=== PATIENT | female | born 1955 | race Caucasian/White ===

== ENCOUNTER 2019-03-06 19:58 | Inpatient (IN) | payer MEDICAID, OTHER ==
[2019-03-06] MEDS: SOD CHLORIDE 0.9% 500 ML IV (22:37)
[2019-03-06] MEDS: ONDANSETRON 4 MG INJ IV (22:37)
[2019-03-06 22:49] LABS: ADD MAN DIFF? NO
[2019-03-06 22:53] LABS: BASOPHILS % 0.3 % (0.0-2.0); EOSINOPHILS % 0.2 % (0.0-7.0); HEMATOCRIT 44.4 % (37.0-47.0); HEMOGLOBIN 14.7 g/dl (12.0-16.0); LYMPHOCYTES # 1.3 10^3/ul (0.8-2.9); MEAN CORPUSCULAR HEMOGLOBIN 28.6 pg (29.0-33.0); MEAN CORPUSCULAR HGB CONC 33.1 g/dl (32.0-37.0); MEAN CORPUSCULAR VOLUME 86.4 fl (82.0-101.0); MEAN PLATELET VOLUME 10.2 fl (7.4-10.4); MONOCYTE # 0.6 10^3/ul (0.3-0.9); MONOCYTES % 5.1 % (0.0-11.0); NEUTROPHIL # 8.9 10^3/ul (1.6-7.5); PLATELET COUNT 265 10^3/UL (140-415); RED BLOOD COUNT 5.14 10^6/ul (4.20-5.40); RED CELL DISTRIBUTION WIDTH 12.3 % (11.5-14.5)
[2019-03-06 22:53] LABS: WHITE BLOOD COUNT 10.9 10^3/ul (4.8-10.8)
[2019-03-06 23:11] LABS: ANION GAP 13 (5-13); BLOOD UREA NITROGEN 14 mg/dl (7-20); CALCIUM 9.8 mg/dl (8.4-10.2); CARBON DIOXIDE 27 mmol/L (21-31); CHLORIDE 94 mmol/L (97-110); CREATININE 0.81 mg/dl (0.44-1.00); Estimated GFR > 60 mL/min (>60); GLUCOSE 127 mg/dl (70-220); POTASSIUM 3.7 mmol/L (3.5-5.1); SODIUM 134 mmol/L (135-144)
[2019-03-06 23:12] LABS: PROTIME 12.3 Sec (11.9-14.9)
[2019-03-06 23:13] LABS: PARTIAL THROMBOPLASTIN TIME 29.6 Sec (23.0-35.0)
[2019-03-06 23:21] LABS: TROPONIN-I < 0.012 ng/ml (0.000-0.120)
[2019-03-07] MEDS ORDERED: ONDANSETRON 4 MG INJ IV (00:30)
[2019-03-07] MEDS ORDERED: ACETAMINOPHEN 325 MG TAB PO ×2 (00:30)
[2019-03-07] MEDS ORDERED: DOCUSATE SODIUM 100 MG CAP PO (00:30)
[2019-03-07] MEDS ORDERED: NACL 0.9% 3 ML SYG IV (00:30)
[2019-03-07] MEDS ORDERED: BISACODYL (EC) 5 MG TAB PO (00:30)
[2019-03-07] MEDS: SOD CHLORIDE 0.9% 500 ML IV (02:00)
[2019-03-07 03:33] LABS: LACTIC ACID 1.4 mmol/L (0.5-2.0)
[2019-03-07 05:59] LABS: ADD MAN DIFF? NO
[2019-03-07 06:08] LABS: WHITE BLOOD COUNT 8.1 10^3/ul (4.8-10.8)
[2019-03-07 06:08] LABS: BASOPHILS % 0.2 % (0.0-2.0); EOSINOPHILS # 0.1 10^3/ul (0.0-0.5); EOSINOPHILS % 0.9 % (0.0-7.0); HEMATOCRIT 39.6 % (37.0-47.0); HEMOGLOBIN 13.1 g/dl (12.0-16.0); LYMPHOCYTES # 1.6 10^3/ul (0.8-2.9); LYMPHOCYTES % 19.3 % (15.0-51.0); MEAN CORPUSCULAR HEMOGLOBIN 28.6 pg (29.0-33.0); MEAN CORPUSCULAR HGB CONC 33.1 g/dl (32.0-37.0); MEAN CORPUSCULAR VOLUME 86.5 fl (82.0-101.0); MEAN PLATELET VOLUME 10.4 fl (7.4-10.4); MONOCYTE # 0.6 10^3/ul (0.3-0.9); MONOCYTES % 7.3 % (0.0-11.0); NEUTROPHIL # 5.8 10^3/ul (1.6-7.5); NEUTROPHILS % 72.2 % (39.0-77.0); PLATELET COUNT 242 10^3/UL (140-415); RED BLOOD COUNT 4.58 10^6/ul (4.20-5.40); RED CELL DISTRIBUTION WIDTH 12.5 % (11.5-14.5)
[2019-03-07 06:25] LABS: CHOL/HDL RATIO 3.9 RATIO; HDL CHOLESTEROL 45 mg/dl (35-98); LDL CHOLESTEROL,CALCULATED 118 mg/dl; TRIGLYCERIDES 72 mg/dl (0-149)
[2019-03-07 06:25] LABS: CHOLESTEROL 177 mg/dl (100-200)
[2019-03-07 06:26] LABS: MAGNESIUM 2.1 mg/dl (1.7-2.5)
[2019-03-07 06:28] LABS: ALANINE AMINOTRANSFERASE 27 IU/L (13-69); ALBUMIN 3.9 g/dl (3.3-4.9); ALBUMIN/GLOBULIN RATIO 1.18; ALKALINE PHOSPHATASE 86 IU/L (42-121); ANION GAP 9 (5-13); ASPARTATE AMINO TRANSFERASE 23 IU/L (15-46); BILIRUBIN,INDIRECT 0.9 mg/dl (0-1.1); BILIRUBIN,TOTAL 0.9 mg/dl (0.2-1.3); BLOOD UREA NITROGEN 12 mg/dl (7-20); CALCIUM 9.2 mg/dl (8.4-10.2); CARBON DIOXIDE 29 mmol/L (21-31); CHLORIDE 98 mmol/L (97-110); CREATININE 0.86 mg/dl (0.44-1.00); Estimated GFR > 60 mL/min (>60); GLUCOSE 112 mg/dl (70-220); POTASSIUM 3.5 mmol/L (3.5-5.1); SODIUM 136 mmol/L (135-144); TOTAL PROTEIN 7.2 g/dl (6.1-8.1)
[2019-03-07 06:57] LABS: HEMOGLOBIN A1C 5.5 % (0-5.9)
[2019-03-07] MEDS ORDERED: hydrALAzine 20 MG INJ IV (07:30)
[2019-03-07] MEDS ORDERED: morphine 2 MG INJ IV (08:00)
[2019-03-07] MEDS ORDERED: NITROGLYCERIN (SL) 0.4 MG TAB SL (08:00)
[2019-03-07 08:13] LABS: CREATINE KINASE 74 IU/L (23-200)
[2019-03-07 08:26] LABS: CK INDEX 1.4; CK-MB 1.03 ng/ml (0.0-2.4); TROPONIN-I < 0.012 ng/ml (0.000-0.120)
[2019-03-07] MEDS: LISINOPRIL 10 MG TAB PO (10:26)
[2019-03-07 14:45] LABS: CREATINE KINASE 78 IU/L (23-200)
[2019-03-07 14:58] LABS: CK INDEX 1.3; CK-MB 1.01 ng/ml (0.0-2.4); TROPONIN-I < 0.012 ng/ml (0.000-0.120)
== END 2019-03-07 17:05 | disposition home or self-care (01) | DRG 313 ==
LOC: E/R 19:58 → 6WM 03-07 00:26
DX: R07.89 Other chest pain (principal); E78.5 Hyperlipidemia, unspecified; R55 Syncope and collapse; I10 Essential (primary) hypertension; R42 Dizziness and giddiness; R11.2 Nausea with vomiting, unspecified
CPT/HCPCS: 36415; 70450; 71045; 80048; 80053; 80061; 82550; 82553; 83036; 83605; 83735; 84443; 84484; 85025; 85610; 85730; 87040-91; 93005; 93306; 93880; 96374; 97161; 99285-25